=== PATIENT | female | born 1955 | race African-American/Black ===

== ENCOUNTER → 2016-03-08 | Outpatient (CLI) | payer OTHER ==
--- NOTE | 2016-03-08 16:52 | WOMENS IMAGING REPORT ---
EXAM DESCRIPTION: BILAT SCREENING MAMMO W/CAD COMPLETED DATE/TIME: 03/08/2016 2:06 pm REASON FOR STUDY: Z12.31 ROUTINE SCREENING MAMMO Z12.31 ENCNTR SCREEN MAMMOGRAM FOR MALIGNANT NEOPL ASM OF JOYA COMPARISON: Multiple since 2009 TECHNIQUE: Standard craniocaudal and mediolateral oblique views of each breast recorded using [employer] acquisition. LIMITATIONS: None. FINDINGS: RIGHT BREAST MASSES: In the right breast upper inner quadrant about 5 cm from the nipple at the 2 o'clock position , a less than 1 cm nodule versus superimposed shadows is present. This requires further evaluation w ith right breast diagnostic tomosynthesis in the 90 and craniocaudad orientations. If this finding persists, then ultrasound would be required for followup. CALCIFICATIONS: No new or suspicious calcifications. ARCHITECTURAL DISTORTION: None. DEVELOPING DENSITY: None. ASYMMETRY: None noted. OTHER: No other significant findings. LEFT BREAST MASSES: No suspicious masses. CALCIFICATIONS: No new or suspicious calcifications. ARCHITECTURAL DISTORTION: None. DEVELOPING DENSITY: None. ASYMMETRY: None noted. OTHER: No other significant findings. Read with the assistance of CAD. .[facility] - R2 Cenova Version 1.3 .[facility] Imaging - R2 Cenova Version 1.3 .[facility] Imaging - R2 Cenova Version 2.4 .[facility] - R2 Cenova Version 2.4 .[facility] - R2 [employer] Version 9.2 BREAST DENSITY: c. The breasts are heterogeneously dense, which may obscure small masses. BIRAD: 0 Incomplete: Additional Imaging Evaluation and/or prior Mammograms for Comparison. RECOMMENDATION: RECOMMENDED FOLLOW-UP: Right breast diagnostic tomosynthesis and ultrasound The patient will be contacted for additional imaging. COMMENT: The [employer] (ACR) has developed recommendations for screening MRI of the breasts in certain patient populations, to be used in conjunction with mammography. Breast MRI s urveillance may be appropriate for women with more than 20% lifetime risk of developing breast cancer as determined by genetic testing, significant family history of the disease, or history of mantle r adiation for Hodgkins Disease. ACR Practice Guidelines 2008. TECHNICAL DOCUMENTATION: FINDING NUMBER: (1) ASSESSMENT: (1) JOB ID: [id number] [employer]- All Rights Reserved
== END ==
LOC: WI 11:06
PROVIDERS: ATTEND Physician Assistant
DX: Z12.31 Encounter for screening mammogram for malignant neoplasm of breast (principal); R92.8 Other abnormal and inconclusive findings on diagnostic imaging of breast
CPT/HCPCS: 77067; G0202

== ENCOUNTER → 2016-03-20 | Outpatient (CLI) | payer OTHER ==
--- NOTE | 2016-03-20 17:20 | WOMENS IMAGING REPORT ---
EXAM DESCRIPTION: RIGHT DIAGNOSTIC MAMMO W/CAD COMPLETED DATE/TIME: 03/20/2016 1:20 pm REASON FOR STUDY: N63 LUMP R92.2 INCONCLUSIVE MAMMOGRAM COMPARISON: Multiple since 2007 TECHNIQUE: Right breast 90 mediolateral view and cone compression in the CC and MLO and 90 mediola teral orientations. Patient refused tomosynthesis LIMITATIONS: None. FINDINGS: BREAST: right MASSES: No suspicious masses. CALCIFICATIONS: No new or suspicious calcifications. ARCHITECTURAL DISTORTION: None. DEVELOPING DENSITY: None. ASYMMETRY: None noted. OTHER: No other significant findings. BREAST DENSITY: c. The breasts are heterogeneously dense, which may obscure small masses. BIRAD: 1 Negative. RECOMMENDATION: RECOMMENDED FOLLOW UP: Please continue yearly bilateral screening in March 2017. Please consider bilateral screening tomosynthesis, given heterogeneously dense tissue SPECIFIC INTERVENTION/IMAGING/CONSULTATION RECOMMENDED:No additional intervention/ imaging/consultati on needed at this time. COMMUNICATION:The negative/benign results were communicated to the patient. COMMENT: PATIENT NOTIFIED BY LETTER. The [employer] (ACR) has developed recommendations for screening MRI of the breast s in certain patient populations, to be used in conjunction with mammography. Breast MRI surveillanc e may be appropriate for women with more than 20% lifetime risk of developing breast cancer as deter mined by genetic testing, significant family history of the disease, or history of mantle radiation f or Hodgkins Disease. ACR Practice Guidelines 2008. TECHNICAL DOCUMENTATION: FINDING NUMBER: (1) ASSESSMENT: (1) JOB ID: [id number] [employer]- All Rights Reserved
== END ==
LOC: WI 13:02
PROVIDERS: ATTEND Physician Assistant
DX: N63 Unspecified lump in breast (principal)
CPT/HCPCS: G0204-52

== ENCOUNTER → 2016-08-02 | Outpatient (CLI) | payer OTHER ==
--- NOTE | 2016-08-02 13:25 | RADIOLOGY REPORT (SQ) ---
EXAM DESCRIPTION: U/S EXTREMITY NONVASCULAR LTD COMPLETED DATE/TIME: 08/02/2016 11:50 am REASON FOR STUDY: PAIN IN LEFT KNEE (M25.562) M25.562 PAIN IN LEFT KNEE COMPARISON: None. TECHNIQUE: Static and real time apple scale ultrasound Doppler spectral analysis, and color Doppler a cquired in the popliteal fossa on the left. LIMITATIONS: None. FINDINGS: No Toribio's cyst was identified. No knee joint effusion. 6 mm lipoma in the popliteal fos sa fat. IMPRESSION: NO SIGNIFICANT FINDING IN THE POPLITEAL FOSSA. TECHNICAL DOCUMENTATION: JOB ID: [id number] [employer]- All Rights Reserved
== END ==
LOC: RAD 10:01
PROVIDERS: ATTEND Physician Assistant
DX: M25.562 Pain in left knee (principal)
CPT/HCPCS: 76882

== ENCOUNTER → 2017-03-18 | Outpatient (CLI) | payer OTHER ==
--- NOTE | 2017-03-18 13:11 | WOMENS IMAGING REPORT ---
EXAM DESCRIPTION: BILAT SCREENING MAMMO W/CAD COMPLETED DATE/TIME: 03/18/2017 11:18 am REASON FOR STUDY: ROUTINE SCREENING; Z12.31 Z12.31 ENCNTR SCREEN MAMMOGRAM FOR MALIGNANT NEOPLASM O F JOYA COMPARISON: [id number] TECHNIQUE: Standard craniocaudal and mediolateral oblique views of each breast recorded using [employer] acquisition. LIMITATIONS: None. FINDINGS: No masses, calcifications or architectural distortion. No areas of suspicion. Read with the assistance of CAD. .[facility] - R2 Cenova Version 1.3 .[facility] Imaging - R2 Cenova Version 1.3 .[facility] Imaging - R2 Cenova Version 2.4 .[facility] - R2 Cenova Version 2.4 .[facility] - R2 [employer] Version 9.2 IMPRESSION: NORMAL MAMMOGRAM. BIRADS 1. BREAST DENSITY: b. There are scattered areas of fibroglandular density. BIRAD: 1 NEGATIVE RECOMMENDATION: ROUTINE SCREENING COMMENT: The patient has been notified of the results by letter per SA requirements. Additional no tification policies are in place for contacting patient with suspicious or incomplete findings. Quality ID #[id number]: The [employer] recommends an annual screening mammogram for women aged 40 years or over. This facility utilizes a reminder system to ensure that all patients receive reminder letters, and/or direct phone calls for appointments. This includes reminders for routine scr eening mammograms, diagnostic mammograms, or other Breast Imaging Interventions when appropriate. Th is patient will be placed in the appropriate reminder system. The [employer] (ACR) has developed recommendations for screening MRI of the breast s in certain patient populations, to be used in conjunction with mammography. Breast MRI surveillanc e may be appropriate for women with more than 20% lifetime risk of developing breast cancer as deter mined by genetic testing, significant family history of the disease, or history of mantle radiation f or Hodgkins Disease. ACR Practice Guidelines 2008. TECHNICAL DOCUMENTATION: FINDING NUMBER: (1) ASSESSMENT: (1) JOB ID: [id number] [employer]- All Rights Reserved
== END ==
LOC: WI 10:57
PROVIDERS: ATTEND Physician Assistant
DX: Z12.31 Encounter for screening mammogram for malignant neoplasm of breast (principal)
CPT/HCPCS: 77067

== ENCOUNTER → 2018-03-19 | Outpatient (CLI) | payer OTHER ==
--- NOTE | 2018-03-19 12:18 | WOMENS IMAGING REPORT ---
EXAM DESCRIPTION: 3D SCREENING MAMMO BILAT COMPLETED DATE/TIME: 03/19/2018 11:59 am REASON FOR STUDY: SCREENING MAMMO Z12.31 ENCNTR SCREEN MAMMOGRAM FOR MALIGNANT NEOPLASM OF JOYA COMPARISON: Multiple since 2009 TECHNIQUE: Standard craniocaudal and mediolateral oblique views of each breast recorded using digita l acquisition and breast tomosynthesis. LIMITATIONS: None. FINDINGS: No masses, calcifications or architectural distortion. No areas of suspicion. Read with the assistance of CAD. .[facility] - R2 Cenova Version 1.3 .[facility] Imaging - R2 Cenova Version 1.3 .[facility] Imaging - R2 Cenova Version 2.4 .[facility] - R2 Cenova Version 2.4 .[facility] - R2 [employer] Version 9.2 IMPRESSION: NORMAL MAMMOGRAM. BIRADS 1. BREAST DENSITY: c. The breasts are heterogeneously dense, which may obscure small masses. BIRAD: 1 NEGATIVE RECOMMENDATION: ROUTINE SCREENING COMMENT: The patient has been notified of the results by letter per SA requirements. Additional no tification policies are in place for contacting patient with suspicious or incomplete findings. Quality ID #[id number]: The [employer] recommends an annual screening mammogram for women aged 40 years or over. This facility utilizes a reminder system to ensure that all patients receive reminder letters, and/or direct phone calls for appointments. This includes reminders for routine scr eening mammograms, diagnostic mammograms, or other Breast Imaging Interventions when appropriate. Th is patient will be placed in the appropriate reminder system. The [employer] (ACR) has developed recommendations for screening MRI of the breast s in certain patient populations, to be used in conjunction with mammography. Breast MRI surveillanc e may be appropriate for women with more than 20% lifetime risk of developing breast cancer as deter mined by genetic testing, significant family history of the disease, or history of mantle radiation f or Hodgkins Disease. ACR Practice Guidelines 2008. DBT Technology DBT is a type of tomographic mammography. With conventional mammography, overlapping breast tissue ma y make lesions difficult to detect, even with good compression. DBT uses an x-ray tube that rotates a round the breast, taking images at different angles. These images are then combined to create thin sl ices of the breast that the radiologist can view as a 3D reconstruction. The [employer] unit can perform full-field digital mammograms (2D imaging); or DBT (3D imaging); or both, in a combination mode that quickly performs both the mammogram and the tomosynthesis scan while the breast is still compressed. PQRS 6045F: Fluoroscopic imaging is not utilized for breast tomosynthesis. TECHNICAL DOCUMENTATION: FINDING NUMBER: (1) ASSESSMENT: (1) JOB ID: [id number] [employer]- All Rights Reserved Reading location - IP/workstation name: [email or web address]
== END ==
LOC: WI 11:46
PROVIDERS: ATTEND Physician Assistant
DX: Z12.31 Encounter for screening mammogram for malignant neoplasm of breast (principal)
CPT/HCPCS: 77063; 77067

== ENCOUNTER → 2019-03-23 | Outpatient (CLI) | payer OTHER ==
--- NOTE | 2019-03-23 11:09 | WOMENS IMAGING REPORT ---
EXAM DESCRIPTION: 3D SCREENING MAMMO BILAT COMPLETED DATE/TIME: 03/23/2019 10:57 am REASON FOR STUDY: ROUTINE SCREENING MAMMOGRAM Z12.31 Z12.31 ENCNTR SCREEN MAMMOGRAM FOR MALIGNANT N EOPLASM OF JOYA COMPARISON: Multiple since 2009 EXAM PARAMETERS: Views: Standard craniocaudal and mediolateral oblique views of each breast recorded using digital acquisition and breast tomosynthesis. Read with the assistance of CAD. .[facility] - R2 Cenova Version 1.3 LIMITATIONS: None. FINDINGS: No suspicious masses, suspicious calcifications or architectural distortion. No areas of c oncern. IMPRESSION: NEGATIVE MAMMOGRAM. BIRADS 1. BREAST DENSITY: b. There are scattered areas of fibroglandular density. BIRAD: ASSESSMENT: 1 NEGATIVE RECOMMENDATION: ROUTINE SCREENING Please continue yearly bilateral screening mammography/tomosynthesis in March 2020 COMMENT: The patient has been notified of the results by letter per MQSA requirements. Additional no tification policies are in place for contacting patient with suspicious or incomplete findings. Quality ID #[id number]: The [employer] recommends an annual screening mammogram for women aged 40 years or over. This facility utilizes a reminder system to ensure that all patients receive reminder letters, and/or direct phone calls for appointments. This includes reminders for routine scr eening mammograms, diagnostic mammograms, or other Breast Imaging Interventions when appropriate. Th is patient will be placed in the appropriate reminder system. TECHNICAL DOCUMENTATION: FINDING NUMBER: (1) ASSESSMENT: (1) JOB ID: [id number] [employer]- All Rights Reserved Reading location - IP/workstation name: [email or web address]
== END ==
LOC: WI 10:03
PROVIDERS: ATTEND Physician Assistant
DX: Z12.31 Encounter for screening mammogram for malignant neoplasm of breast (principal)
CPT/HCPCS: 77063; 77067

== ENCOUNTER → 2020-03-24 | Outpatient (CLI) | payer OTHER ==
--- NOTE | 2020-03-24 11:17 | WOMENS IMAGING REPORT ---
EXAM DESCRIPTION: 3D SCREENING MAMMO BILAT IMAGES COMPLETED DATE/TIME: 03/24/2020 9:59 am REASON FOR STUDY: Z12.31 ENCOUNTER FOR SCREENING MAMMOGRAM FOR MALIGNANT NEOPLASM OF BREAST Z12.31 ENCNTR SCREEN MAMMOGRAM FOR MALIGNANT NEOPLASM OF JOYA COMPARISON: 03/23/2019, 03/19/2018, 03/18/2017 EXAM PARAMETERS: Views: Standard craniocaudal and mediolateral oblique views of each breast recorded using digital acquisition and breast tomosynthesis. Read with the assistance of CAD. .[facility] - [employer] Version 9.2 LIMITATIONS: None. FINDINGS: No suspicious masses, suspicious calcifications or architectural distortion. No areas of c oncern. IMPRESSION: NEGATIVE MAMMOGRAM. BIRADS 1. BREAST DENSITY: b. There are scattered areas of fibroglandular density. BIRAD: ASSESSMENT: 1 NEGATIVE RECOMMENDATION: ROUTINE SCREENING COMMENT: The patient has been notified of the results by letter per MQSA requirements. Additional no tification policies are in place for contacting patient with suspicious or incomplete findings. Quality ID #[id number]: The [employer] recommends an annual screening mammogram for women aged 40 years or over. This facility utilizes a reminder system to ensure that all patients receive reminder letters, and/or direct phone calls for appointments. This includes reminders for routine scr eening mammograms, diagnostic mammograms, or other Breast Imaging Interventions when appropriate. Th is patient will be placed in the appropriate reminder system. TECHNICAL DOCUMENTATION: FINDING NUMBER: (1) ASSESSMENT: (1) JOB ID: [id number] [employer]- All Rights Reserved Reading location - IP/workstation name: [email or web address]
--- OUTSIDE RECORDS SUMMARY | 2020-03-24 14:33 | XMS REPORT ---
:1955 [facility] [place] [address] [place] [address] Care Team Providers Name Role Phone Bundle Attending Clinician Unavailable Bundle Attending Clinician Unavailable Bundle SHIRA Duffy Attending Clinician Unavailable Allergies, Adverse Reactions, Alerts This patient has no known allergies or adverse reactions. Medications Ordered Filled Start Stop Current Ordering Indication Dosage Frequency Signature Comments Components Medication Medication Date Date Medication? Clinician (SIG) Name Name atorvastati 2017-03 Yes 10mg QD Take 10 mg n (LIPITOR) 2-23 by mouth 10 MG 10:53: daily. tablet 06 Problems This patient has no known problems. Procedures Procedure Date / Time Performed Performing Clinician Devic e PREV VISIT EST AGE 40-64 2019-02-04 15:30:00 PREV VISIT EST AGE 40-64 2018-02-03 08:30:00 OFFICE/OUTPATIENT VISIT EST 2017-02-28 15:45:00 OFFICE/OUTPATIENT VISIT, EST 2013-12-11 09:15:00 ROUTINE VENIPUNCTURE 2013-12-11 09:15:00 LIPID PANEL 2013-12-11 09:15:00 COMPREHEN METABOLIC PANEL 2013-12-11 09:15:00 OFFICE/OUTPATIENT VISIT, EST 2013-06-11 08:30:00 Results Test Description Test Time Test Comments Text Results Atomic Results Result Comments CBC (INCLUDES DIFF/PLT) 2020-03-17 00:00:00 Test Item Value Reference Range Comments EOSINOPHILS (test code = 78889059) 2.9 % RDW (test code = 83024172) 12.2 % 11.0-15.0 RED BLOOD CELL COUNT (test code = 55374518) 4.15 Million/uL 3.80 -5.10 PLATELET COUNT (test code = 34340088) 290 Thousand/uL 140-400 LYMPHOCYTES (test code = 23386200) 38.4 % MONOCYTES (test code = 03302904) 8.3 % ABSOLUTE EOSINOPHILS (test code = 09680439) 131 cells/uL 15-5 00 NEUTROPHILS (test code = 18970290) 49.7 % BASOPHILS (test code = 05843315) 0.7 % MPV (test code = 17676811) 11.2 fL 7.5-12.5 MCH (test code = 28718013) 30.1 pg 27.0-33.0 MCHC (test code = 09928771) 33.2 g/dL 32.0-36.0 MCV (test code = 17071584) 90.6 fL 80.0-100.0 ABSOLUTE LYMPHOCYTES (test code = 11971314) 1728 cells/uL 850- 3900 ABSOLUTE MONOCYTES (test code = 73082931) 374 cells/uL 200-95 0 ABSOLUTE NEUTROPHILS (test code = 42540597) 2237 cells/uL 1500 -7800 ABSOLUTE BASOPHILS (test code = 45850600) 32 cells/uL 0-200 HEMATOCRIT (test code = 79989483) 37.6 % 35.0-45.0 WHITE BLOOD CELL COUNT (test code = 85802121) 4.5 Thousand/uL 3. 8-10.8 HEMOGLOBIN (test code = 00218605) 12.5 g/dL 11.7-15.5 COMPREHENSIVE METABOLIC [id number] 08:12:00 Test Item Value Reference Range Comments GLOBULIN (test code = 05702716) 3.4 g/dL (calc) 1.9-3.7 PROTEIN, TOTAL (test code = 27362355) 7.3 g/dL 6.1-8.1 SODIUM (test code = 47783728) 140 mmol/L 135-146 CHLORIDE (test code = 08733609) 103 mmol/L 98-110 ALKALINE PHOSPHATASE (test code = 98178013) 83 U/L 37-1 53 ALBUMIN/GLOBULIN RATIO (test code = 1.1 (calc) 1.0-2.5 80293806) AST (test code = 58048506) 17 U/L 10-35 GLUCOSE (test code = 82382358) 107 mg/dL 65-99 CREATININE (test code = 24538545) 1.05 mg/dL 0.50-0.99 CALCIUM (test code = 42576528) 9.7 mg/dL 8.6-10.4 BILIRUBIN, TOTAL (test code = 37517261) 0.6 mg/dL 0.2-1.2 UREA NITROGEN (BUN) (test code = 41335730) 16 mg/dL 7-25 ALT (test code = 80587129) 20 U/L 6-29 POTASSIUM (test code = 77323705) 4.5 mmol/L 3.5-5.3 CARBON DIOXIDE (test code = 54147260) 31 mmol/L 20-32 BUN/CREATININE RATIO (test code = 70023610) 15 (calc) 6-22 ALBUMIN (test code = 85565811) 3.9 g/dL 3.6-5.1 eGFR NON-AFR. LITHUANIAN (test code = 56 mL/min/1.73m2 > OR = 60 72286900) eGFR (test code = 65 mL/min/1.73m2 > OR = 60 29102373) LIPID PANEL, [id number] 08:12:00 Test Item Value Reference Range Comments HDL CHOLESTEROL (test code = 95756682) 59 mg/dL > OR = 50 CHOLESTEROL, TOTAL (test code = 51991891) 155 mg/dL <200 NON HDL CHOLESTEROL (test code = 11855910) 96 mg/dL (calc) <130 TRIGLYCERIDES (test code = 66564658) 123 mg/dL <150 CHOL/HDLC RATIO (test code = 28844664) 2.6 (calc) <5.0 LDL-CHOLESTEROL (test code = 44342691) 76 mg/dL (calc) CBC (INCLUDES DIFF/PLT)2019-11-18 08:12:00 Test Item Value Reference Range Comments ABSOLUTE MONOCYTES (test code = 54469369) 413 cells/uL 200-95 0 ABSOLUTE EOSINOPHILS (test code = 269 cells/uL 15-500 87315797) MCV (test code = 65092253) 90.7 fL 80.0-100.0 NEUTROPHILS (test code = 49106835) 42.2 % MONOCYTES (test code = 70350925) 8.6 % RDW (test code = 56786720) 12.1 % 11.0-15.0 LYMPHOCYTES (test code = 07672023) 43.0 % MPV (test code = 91093294) 11.3 fL 7.5-12.5 ABSOLUTE NEUTROPHILS (test code = 2026 cells/uL 2359-1641 89774393) ABSOLUTE BASOPHILS (test code = 95033475) 29 cells/uL 0-200 BASOPHILS (test code = 76490360) 0.6 % MCH (test code = 59163871) 29.7 pg 27.0-33.0 HEMATOCRIT (test code = 11572588) 40.0 % 35.0-45.0 EOSINOPHILS (test code = 72595519) 5.6 % PLATELET COUNT (test code = 27572626) 426931 Thousand/uL 140-400 WHITE BLOOD CELL COUNT (test code = 4.8 Thousand/uL 3.8-10.8 58952616) MCHC (test code = 62074840) 32.8 g/dL 32.0-36.0 ABSOLUTE LYMPHOCYTES (test code = 2064 cells/uL 850-3900 88294003) HEMOGLOBIN (test code = 71547531) 13.1 g/dL 11.7-15.5 RED BLOOD CELL COUNT (test code = 4.41 Million/uL 3.80-5.10 64040524) COMPREHENSIVE METABOLIC [id number] 08:27:00 Test Item Value Reference Range Comments AST (test code = 07978172) 18 U/L 10-35 PROTEIN, TOTAL (test code = 08667580) 7.5 g/dL 6.1-8.1 ALBUMIN (test code = 28317024) 4.0 g/dL 3.6-5.1 BUN/CREATININE RATIO (test code = NOT APPLICABLE (calc) 6-22 23554133) GLUCOSE (test code = 27893346) 97 mg/dL 65-99 CREATININE (test code = 78215968) 0.85 mg/dL 0.50-0.99 POTASSIUM (test code = 48859845) 4.2 mmol/L 3.5-5.3 BILIRUBIN, TOTAL (test code = 1.0 mg/dL 0.2-1.2 71717919) ALKALINE PHOSPHATASE (test code = 88 U/L 33-130 11504289) ALBUMIN/GLOBULIN RATIO (test code = 1.1 (calc) 1.0-2.5 22011900) eGFR NON-AFR. LITHUANIAN (test code = 73 mL/min/1.73m2 > OR = 60 25419336) eGFR (test code = 85 mL/min/1.73m2 > OR = 60 42522016) UREA NITROGEN (BUN) (test code = 13 mg/dL 7-25 61409154) CARBON DIOXIDE (test code = 13653882) 29 mmol/L 20-32 CHLORIDE (test code = 12899879) 103 mmol/L 98-110 ALT (test code = 48270516) 19 U/L 6-29 SODIUM (test code = 35020092) 140 mmol/L 135-146 GLOBULIN (test code = 32838908) 3.5 g/dL (calc) 1.9-3.7 CALCIUM (test code = 19147445) 9.6 mg/dL 8.6-10.4 LIPID PANEL, [id number] 08:27:00 Test Item Value Reference Range Comments NON HDL CHOLESTEROL (test code = 44464883) 106 mg/dL (calc) <130 HDL CHOLESTEROL (test code = 17439331) 62 mg/dL >50 LDL-CHOLESTEROL (test code = 28469868) 91 mg/dL (calc) CHOL/HDLC RATIO (test code = 16554317) 2.7 (calc) <5.0 CHOLESTEROL, TOTAL (test code = 43008660) 168 mg/dL <200 TRIGLYCERIDES (test code = 98363448) 64 mg/dL <150 CBC (INCLUDES DIFF/PLT)2019-02-05 08:27:00 Test Item Value Reference Range Comments RDW (test code = 95640808) 12.1 % 11.0-15.0 ABSOLUTE MONOCYTES (test code = 48796185) 417 cells/uL 200-95 0 ABSOLUTE EOSINOPHILS (test code = 88845523) 219 cells/uL 15-5 00 MONOCYTES (test code = 83192546) 9.7 % ABSOLUTE BASOPHILS (test code = 34186562) 52 cells/uL 0-200 HEMATOCRIT (test code = 41462151) 37.9 % 35.0-45.0 RED BLOOD CELL COUNT (test code = 16423114) 4.31 Million/uL 3.80 -5.10 WHITE BLOOD CELL COUNT (test code = 4.3 Thousand/uL 3.8-10.8 81667782) MPV (test code = 04782518) 11.2 fL 7.5-12.5 ABSOLUTE LYMPHOCYTES (test code = 81970124) 1733 cells/uL 850- 3900 LYMPHOCYTES (test code = 52755425) 40.3 % MCV (test code = 28521441) 87.9 fL 80.0-100.0 EOSINOPHILS (test code = 36703383) 5.1 % MCHC (test code = 93425175) 33.8 g/dL 32.0-36.0 ABSOLUTE NEUTROPHILS (test code = 48017005) 1879 cells/uL 1500 -7800 PLATELET COUNT (test code = 48259029) 290 Thousand/uL 140-400 BASOPHILS (test code = 05013568) 1.2 % NEUTROPHILS (test code = 60106304) 43.7 % HEMOGLOBIN (test code = 98093790) 12.8 g/dL 11.7-15.5 MCH (test code = 51548103) 29.7 pg 27.0-33.0 CBC (H/H, RBC, INDICES, WBC, PLT)2018-02-03 10:06:00 Test Item Value Reference Range Comments MCV (test code = 87957565) 88.1 fL 80.0-100.0 HEMOGLOBIN (test code = 78847520) 12.9 g/dL 11.7-15.5 HEMATOCRIT (test code = 23442422) 38.4 % 35.0-45.0 MCH (test code = 46866574) 29.6 pg 27.0-33.0 MPV (test code = 71103212) 11.2 fL 7.5-12.5 PLATELET COUNT (test code = 96253172) 295 Thousand/uL 140-400 RED BLOOD CELL COUNT (test code = 04477703) 4.36 Million/uL 3.80 -5.10 WHITE BLOOD CELL COUNT (test code = 5.6 Thousand/uL 3.8-10.8 65282892) RDW (test code = 08931277) 12.4 % 11.0-15.0 MCHC (test code = 26074334) 33.6 g/dL 32.0-36.0 COMPREHENSIVE METABOLIC [id number] 10:06:00 Test Item Value Reference Range Comments GLOBULIN (test code = 14964638) 3.8 g/dL (calc) 1.9-3.7 CARBON DIOXIDE (test code = 70602298) 30 mmol/L 20-32 POTASSIUM (test code = 27445618) 4.2 mmol/L 3.5-5.3 CREATININE (test code = 62550015) 0.86 mg/dL 0.50-0.99 CALCIUM (test code = 03957879) 9.5 mg/dL 8.6-10.4 eGFR NON-AFR. LITHUANIAN (test code = 73 mL/min/1.73m2 > OR = 60 32908227) UREA NITROGEN (BUN) (test code = 15 mg/dL 7-25 35842155) BILIRUBIN, TOTAL (test code = 0.7 mg/dL 0.2-1.2 29709009) PROTEIN, TOTAL (test code = 90860214) 8.0 g/dL 6.1-8.1 ALKALINE PHOSPHATASE (test code = 85 U/L 33-130 95345294) ALBUMIN (test code = 87572667) 4.2 g/dL 3.6-5.1 ALT (test code = 72668317) 1717 U/L 6-29 AST (test code = 41175727) 17 U/L 10-35 BUN/CREATININE RATIO (test code = NOT APPLICABLE (calc) 6-22 83065762) eGFR (test code = 85 mL/min/1.73m2 > OR = 60 01694525) SODIUM (test code = 65728613) 140 mmol/L 135-146 CHLORIDE (test code = 85789460) 103 mmol/L 98-110 GLUCOSE (test code = 04926084) 95 mg/dL 65-99 ALBUMIN/GLOBULIN RATIO (test code = 1.1 (calc) 1.0-2.5 71469903) LIPID PANEL, [id number] 10:06:00 Test Item Value Reference Range Comments CHOLESTEROL, TOTAL (test code = 183 mg/dL <200 35526669) TRIGLYCERIDES (test code = 52174343) 92 mg/dL <150 NON HDL CHOLESTEROL (test code = 906566 mg/dL (calc) <130 35664210) CHOL/HDLC RATIO (test code = 89978219) 2.4 (calc) <5.0 HDL CHOLESTEROL (test code = 29000550) 7777 mg/dL >50 LDL-CHOLESTEROL (test code = 95025859) 8787 mg/dL (calc) Lipid [id number] 00:01:00 Test Item Value Reference Range Comments LDL Cholesterol (Calc) (test code = 888579) 55 mg/dL <100 Total Chol/HDL Ratio (test code = 984992) 2.1 Ratio <5.0 Cholesterol (test code = 390058) 142 mg/dL <200 VLDL Cholesterol (Calc) (test code = 558680) 20 mg/dL <30 HDL Cholesterol (test code = 654280) 67 mg/dL >50 Triglycerides (test code = 590727) 99 mg/dL <150 CBC NO Diff (Complete Blood Count)2017-02-28 00:01:00 Test Item Value Reference Range Comments MCH (test code = 660838) 29.9 pg 27.0-33.0 Hemoglobin (test code = 094452) 12.6 g/dL 11.7-15.5 RDW (test code = 072536) 13.3 % 11.0-15.0 MPV (test code = 319637) 10.8 fL 7.5-12.5 MCHC (test code = 370216) 32.5 g/dL 32.0-36.0 MCV (test code = 447012) 92.2 fL 80.0-100.0 RBC (test code = 673258) 4.21 MIL/uL 3.80-5.10 WBC (test code = 945599) 5.6 K/uL 3.8-10.8 Hematocrit (test code = 667693) 38.8 % 35.0-45.0 Platelet Count (test code = 217430) 291 K/uL 140-400 CMP with Estimated [id number] 00:01:00 Test Item Value Reference Range Comments Alkaline Phosphatase (test code = 443791) 82 U/L 33-130 Creatinine (test code = 593992) 0.76 mg/dL 0.50-0.99 Potassium (test code = 529135) 3.8 mmol/L 3.5-5.3 BUN (test code = 709334) 9 mg/dL 7-25 ALT/SGPT (test code = 196430) 21 U/L 6-29 Bilirubin, Total (test code = 440431) 0.9 mg/dL 0.2-1.2 Calcium (test code = 679304) 9.0 mg/dL 8.6-10.4 Est GFR, (test code = 064932) >89 mL/min > =60 Sodium (test code = 083056) 143 mmol/L 135-146 Total Protein (test code = 737508) 7.3 g/dL 6.1-8.1 Chloride (test code = 032124) 106 mmol/L 98-110 CO2 (test code = 471943) 23 mmol/L 20-31 AST/SGOT (test code = 920109) 20 U/L 10-35 Est GFR, NonAfrican Bhutanese (test code = 126455) 86 mL/min >=60 Albumin (test code = 870575) 3.9 g/dL 3.6-5.1 Glucose (test code = 169385) 99 mg/dL 65-99 CMP with Estimated [id number] 00:01:00 Test Item Value Reference Range Comments Sodium (test code = 835246) 140 mmol/L 135-146 Est GFR, (test code = 220899) 86 mL/min > =60 Est GFR, NonAfrican Bhutanese (test code = 600038) 75 mL/min >=60 Total Protein (test code = 193996) 7.2 g/dL 6.1-8.1 ALT/SGPT (test code = 485165) 27 U/L 6-29 BUN (test code = 766757) 12 mg/dL 7-25 Bilirubin, Total (test code = 449935) 0.8 mg/dL 0.2-1.2 AST/SGOT (test code = 775942) 24 U/L 10-35 Alkaline Phosphatase (test code = 543297) 76 U/L 33-130 Albumin (test code = 814445) 3.9 g/dL 3.6-5.1 CO2 (test code = 552317) 27 mmol/L 20-31 Creatinine (test code = 557080) 0.85 mg/dL 0.50-0.99 Potassium (test code = 414172) 4.2 mmol/L 3.5-5.3 Glucose (test code = 436969) 85 mg/dL 65-99 Calcium (test code = 493838) 9.0 mg/dL 8.6-10.4 Chloride (test code = 159334) 106 mmol/L 98-110 CBC NO Diff (Complete Blood Count)2016-07-27 00:01:00 Test Item Value Reference Range Comments MCH (test code = 029694) 29.5 pg 27.0-33.0 MPV (test code = 084131) 10.8 fL 7.5-12.5 MCHC (test code = 909736) 32.1 g/dL 32.0-36.0 Hematocrit (test code = 005009) 38.3 % 35.0-45.0 MCV (test code = 703686) 91.8 fL 80.0-100.0 Hemoglobin (test code = 766503) 12.3 g/dL 11.7-15.5 RDW (test code = 959328) 13.3 % 11.0-15.0 RBC (test code = 935948) 4.17 MIL/uL 3.80-5.10 Platelet Count (test code = 926865) 299 K/uL 140-400 WBC (test code = 480160) 4.4 K/uL 3.8-10.8 Lipid [id number] 00:01:00 Test Item Value Reference Range Comments Total Chol/HDL Ratio (test code = 638077) 1.8 Ratio <=5.0 LDL Cholesterol (Calc) (test code = 408447) 48 mg/dL <130 Triglyceride (test code = 102064) 65 mg/dL <150 Cholesterol (test code = 727119) 134 mg/dL 125-200 VLDL Cholesterol (Calc) (test code = 055969) 13 mg/dL <30 HDL Cholesterol (test code = 392781) 73 mg/dL >=46 [id number] 09:02:00 Test Item Value Reference Range Comments CO2 (test code = CO2) 26.5 MMOL/L 21.0-32.0 ION GAP (test code = ION GAP) 15 4-16 EGFR (test code = EGFR) 68.50 >60.00 TP (test code = TP) 8.0 G/DL 6.9-8.5 K (test code = K) 4.3 MMOL/L 3.5-5.1 EGFRAA (test code = EGFRAA) 83.02 >60.00 ALK PHOS (test code = ALK PHOS) 74 U/L 50-136 CA (test code = CA) 9.2 MG/DL 8.5-10.1 ALB (test code = ALB) 3.7 G/DL 3.2-4.7 AST (test code = AST) 26 U/L 9-37 BILT (test code = BILT) 0.6 MG/DL 0.1-1.0 BUN (test code = BUN) 12 MG/DL 7-18 CL (test code = CL) 105 MMOL/L 98-110 GLU (test code = GLU) 97 MG/DL 70-110 BUN/CREAT RATIO (test code = BUN/CREAT RATIO) 13 10 -14 CR (test code = CR) 0.9 MG/DL 0.4-1.3 GLOB (test code = GLOB) 4.3 1.9-4.5 ALT (test code = ALT) 33 U/L 9-61 NA (test code = NA) 142 MMOL/L 136-145 LIPID [id number] 09:02:00 Test Item Value Reference Range Comments CHOL (test code = CHOL) 151 MG/DL 140-200 CHD (test code = CHD) 43.05 HDL (test code = HDL) 65 MG/DL 32-96 TGL (test code = TGL) 83 MG/DL 30-200 DLDL (test code = DLDL) 74 MG/DL 100-130 Assessments Condition Name Status Diagnosis Date Treating Clinici an Encntr for general adult medical exam w/o Active abnormal findings Hyperlipidemia, unspecified Active Encntr screen mammogram for malignant Active neoplasm of breast Tachycardia, unspecified Active Encntr for general adult medical exam w/o Active abnormal findings Hyperlipidemia, unspecified Active Encntr screen mammogram for malignant Active neoplasm of breast Encounter for screening for malignant Active neoplasm of colon Hyperlipidemia, unspecified Active Encntr screen mammogram for malignant Active neoplasm of breast Pain in left knee Active Body mass index (BMI) 29.0-29.9, adult Active Pain - Back (Unspecified) Active Hyperlipidemia (Unspecified) Active Pain - Neck Active Pain - Back (Unspecified) Active Pain - Shoulder Region Active Pain - Knee/Lower Leg Active Hyperlipidemia (Unspecified) Active Encounters Start End Encounter Admission Attending Care Care Encounter Date/Time Date/Time Type Type Clinicians Facility Department ID 2019-02-04 2019-02-04 Outpatient Judy, [place] [address] [id number] 15:30:00 15:30:00 Cele [place] [id number] s [id number] and [id number] [facility], 2018-02-23 2018-02-23 Outpatient [facility] [id number] 10:52:43 10:58:09 2018-02-03 2018-02-03 Outpatient Bundle, [facility] 94 [id number] 08:30:00 08:30:00 Cele [place] [id number] s [id number] and [id number] [facility], SHIRA 2017-02-28 2017-02-28 Outpatient Bundle, [facility] CC [id number] 15:45:00 15:45:00 Cele [place] [id number] s [id number] and [id number] [facility], SHIRA 2013-12-11 2013-12-11 Outpatient Bundle SHIRA ROSENDO Chris [id number] 09:15:00 09:15:00 [facility] [id number] [facility], [id number] Inc[employer] [id number] 2013-06-11 2013-06-11 Outpatient Bundle SHIRA ROSENDO Chris [id number] 08:30:00 08:30:00 [facility] [id number] [facility], [id number] Inc[employer] [id number] Plan of Treatment Planned Activity Planned Date Details Comments Future Scheduled Test [code = ] Future Scheduled Test [code = ] Future Scheduled Test [code = ] Future Scheduled Test [code = ] Future Scheduled Test [code = ] Social History Smoking Status Start Date Stop Date Never smoker 2018-02-23 00:00:00 Vital Signs This patient has no known vital signs. Hospital Discharge Instructions Patient Instructions Esperanza Scherer NP - 02/23/2018 10:55 AM EST Seek immediate emergency medical attention if you experience severe or worsening abdominal pain, difficulty swallowing, stiff neck, shortness of breath, coughing or vomiting up blood, chest pain, increased fever, unexplained weight loss, or blood in stool. Follow up 2 weeks after the initiation of treatment. Quitting smoking is one of the most important decisions you can make for your current and future health. Consider what you dislike about smoking and how quitting couldpersonally benefit you. Try to cut down. Aim for reducing the amount you smoke by at least half overthe next 6 weeks. /[id number] Smoking Cessation My quit date is: / / My goal: ___ My plan: I will return to [facility] on: / / Be a Quitter! ? Remind yourself why you want to quit. ? Delay your first cigarette of the day for as long as possible. ? Start cleaning out all pockets, drawers, and your car of cigarettes. Getting Through the Cravings Once You Are Smoke Free: Each craving will last about 10 minutes, whether or not you smoke. Heres how to get through the cravings without cigarettes: DELAY: Tell yourself that youll wait for the next craving. Do it every time! DEEP BREATHS: One reason smoking feels good is because youbreathe in deeply to inhale. Take four slow, deep breaths and feel the relaxation without the hamfuleffects of cigarettes. DRINK WATER: Drink a glass of cool water. It will give your hands and mouth something to do and will help flush the nicotine out of your system faster. DIVERT: Do something else brush your teeth, take a walk, call a friend who can offer you support. Just moving onto something other than thinking about cigarettes will move you through the craving. Every time you have a cigarette, write t down. Be honest! Write down the time of day, where you were and what you were doing, and how intense the need for the cigarette was. This will help you understand which times of the day may be harder than others and when you may require more support after you quit. Smoking Log Bring this with you to your next appointment at [facility]: Cigarette Number Time of Day Setting: Where I Was/Who I Was With Craving Level (1-10) 10=Intense Craving 1 2 3 4 5 6 7 8 9 10 11 12 13 14 15 16 17 1819 20 Frequently Asked Questions What can I do when I get the urge to smoke? To get through the urgeto smoke, try the following: ? Review your reasons for quitting and think of all the benefits to your health, your finances, and your family. ? Remind yourself that there is no such thing as just one cigarette or even one puff. ? Ride out the desire to smoke. Use the 4 Os Delay, Deep Breaths, Drink Water and Divert to get you through. The craving will go away eventually. Do not fool yourself into thinking you can have just one cigarette. What can I do about weight gain? Many smokers do gain some weight when they quit. The average weight gain is less than 10 pounds. Try the followin. Eatplenty of fruits and vegetables, and limit the amount of fat in your diet. 2. Be sure to drink plenty of water. It will help keep you full and flush the nicotine from your system. 3. Get enough sleep. Maintain regular physical activity. Please check with your primary care provider before starting an exercise program. Any tips on how to deal with stress? Stress is a natural part of life. The hayes is to deal with it without reaching foc a cigarette. Taking deep breaths, counting backwards from 10 and asking yourself 1-low big a deal is this? are just some ways to deal with stressful situations. Writing down your feelings, talking with a friend and doing things like positive self-talk and meditation are some other ways that people deal with daily stress. What else do I need to be aware of? It is important to talk to your primary care provider about any present or past tobacco use to make sure youget the appropriate screening and preventative health care you need. It is well known that tobacco use puts you at risk for certain illnesses such as chronic lung disease or lung cancer. If you have any health concerns that may be related to your former tobacco use, such as a worsening chronic cough or trouble breathing, please see your PCP as soon as possible. What if I start smoking again? Slips happen. Most people try to quit smoking a few times before they are successful. Dont beat yourself up if this happens to you! Ask yourself if this was a slip or a relapse. A slip is a one- time mistake that is quickly corrected. A relapse is going back to your old smoking habits. ? If you slip, dontgive up. Think of it as a learning experience. Ask yourself what went wrong and renew your commitment to staying away from smoking for good. ? If you relapse, try not to get discouraged. Ask yourself the question What caused me to start smoking? Figure out what helped you and what didnt when you tried to quit. Knowing why you relapsed is useful information for your next attempt to quit. Where can I get more information in between visits to [facility]? [facility] [employer] is a great resource to help you quit smoking. In between visits, go to [email or web address] to get facts about quitting, helpful tips and tricks, and to watch educational videos. When should I return to [facility]? As part of your [facility] cessation visit, [facility] when you should return for additional coaching support. Typically this is 2 weeks after your initial smoking visit. in this encounter
== END ==
LOC: WI 09:47
PROVIDERS: ATTEND Physician Assistant
DX: Z12.31 Encounter for screening mammogram for malignant neoplasm of breast (principal)
CPT/HCPCS: 77063; 77067